=== PATIENT | male | born 1965 | race Caucasian/White ===

== ENCOUNTER 2020-06-06 15:15 | Emergency (ER) | payer OTHER ==
[~2020-06-06] VITALS: Ht 177.8 cm; Wt 86.0 kg
[2020-06-06] MEDS ORDERED: OMEPRAZOLE10 MG PO (16:27)
[2020-06-06] MEDS ORDERED: LEVOTHYROXIN25 MC1 PO (16:27)
[2020-06-06] MEDS ORDERED: VERAPAMIL240 MG PO (16:28)
[2020-06-06] MEDS ORDERED: LISINOPRIL5 MG PO (16:28)
[2020-06-06 16:29] VITALS: BP 138/96
== END 2020-06-06 16:30 | disposition home or self-care (01) | DRG 605 ==
LOC: ED 15:15
PROC: 0HQFXZZ Repair Right Hand Skin, External Approach (ICD-10-PCS; principal; 2020-06-06)
DX: S61.210A Laceration without foreign body of right index finger without damage to nail, initial encounter (principal); I10 Essential (primary) hypertension; E03.9 Hypothyroidism, unspecified; W26.8XXA Contact with other sharp object(s), not elsewhere classified, initial encounter; Y92.89 Other specified places as the place of occurrence of the external cause; Y99.0 Civilian activity done for income or pay